=== PATIENT | female | born 1980 | race Caucasian/White ===

== ENCOUNTER 2017-03-10 11:49 | Emergency (ER) | payer MEDICAID ==
[~2017-03-10] VITALS: Ht 162.6 cm; Wt 81.6 kg
[2017-03-10 18:25] LABS: Basophils # (auto) 0.1 uL; Eosinophils # (auto) 0.1 uL; Eosinophils % (auto) 1.1 % (0.0-7.0); Hematocrit 40.2 % (36.0-46.0); Hemoglobin 13.1 g/dL (12.2-16.2); Lymphocytes % (auto) 14.4 % (10.0-50.0); Mean Corpuscular Hgb Conc. 32.7 g/dL (32.0-36.0); Mean Corpuscular Volume 82.6 fL (80.0-100.0); Mean Platelet Volume 7.5 fL (6.9-10.8); Monocytes # (auto) 0.6 uL; Monocytes % (auto) 4.6 % (0.0-12.0); Neutrophils # (auto) 10.8 uL; Neutrophils % (auto) 78.9 % (37.0-80.0); Platelet Count (auto) 298 10^3/uL (140-450); Red Cell Distribution Width 15.6 % (11.8-14.3); White Blood Cell 13.7 10^3/uL (4.4-10.8)
[2017-03-10 18:43] LABS: Albumin 3.8 g/dL (3.4-5.0); BUN/Creatinine Ratio 12.2; Bilirubin, Total 0.3 mg/dL (0.2-1.0); Potassium 3.9 mmol/L (3.5-5.1); Total Protein 8.5 g/dL (6.4-8.2)
[2017-03-10 18:50] LABS: Urine Bilirubin Negative (Negative); Urine Blood Negative /uL (Negative); Urine Color Yellow (Yellow); Urine Glucose Normal (Normal); Urine Hyaline Cast FEW /lpf (0 - 2); Urine Ketone 2+ (Negative); Urine Mucus FEW (None Seen); Urine Nitrite Negative (Negative); Urine RBC 3 /hpf (0 - 4); Urine Squamous Epithelial Cell FEW /hpf (<5); Urine Urobilinogen Normal (Negative)
[2017-03-10] MEDS ORDERED: SODIUM CHLORIDE 0.9% 1,000 ML IV ONE ×2 (21:00→21:15)
[2017-03-10] MEDS ORDERED: NALBUPHINE HCL 10 MG/1ml INJECTION IV ONE (21:15)
[2017-03-10] MEDS ORDERED: ONDANSETRON HCL 4 MG/2 ML VIAL IV ONE (21:15)
[2017-03-10 22:50] VITALS: BP 126/84
== END 2017-03-11 00:28 | disposition home or self-care (01) ==
LOC: ER 11:49
DX: K57.90 Diverticulosis of intestine, part unspecified, without perforation or abscess without bleeding (principal); R19.7 Diarrhea, unspecified
CPT/HCPCS: 36415; 74176; 80053; 81001; 83690; 85025; 96361; 96374; 96375; 99285; J2300; J2405; J7030

== ENCOUNTER 2017-12-06 08:40 | Emergency (ER) | payer MEDICAID ==
[~2017-12-06] VITALS: Ht 162.6 cm; Wt 81.2 kg
[2017-12-06 08:47] VITALS: BP 137/76
== END 2017-12-06 10:29 | disposition home or self-care (01) ==
LOC: ER 08:40
DX: S46.912A Strain of unspecified muscle, fascia and tendon at shoulder and upper arm level, left arm, initial encounter (principal); X50.0XXA Overexertion from strenuous movement or load, initial encounter; Y93.89 Activity, other specified; Y99.8 Other external cause status; Y92.89 Other specified places as the place of occurrence of the external cause

== ENCOUNTER 2018-10-15 14:19 | Emergency (ER) | payer BC, MEDICAID ==
[~2018-10-15] VITALS: Ht 162.6 cm; Wt 83.9 kg
[2018-10-15 15:47] LABS: Urine Bacteria NONE SEEN /hpf (None Seen); Urine Blood Negative /uL (Negative); Urine Specific Gravity 1.012 (1.001-1.035); Urine WBC 3 /hpf (0 - 5)
[2018-10-15] MEDS ORDERED: SODIUM CHLORIDE 0.9% 500 ML IV ONE ×2 (23:25→23:30)
[2018-10-15] MEDS ORDERED: KETOROLAC TROMETH 15 mg/ml 1ML VL IV ONE (23:45)
[2018-10-16] MEDS ORDERED: cefTRIAXone 1GM/50ML D5W 50 ML IV ONE
[2018-10-16 00:56] LABS: Hematocrit 40.7 % (36.0-46.0)
[2018-10-16 00:57] LABS: Hemoglobin 13.6 g/dL (12.2-16.2); Mean Corpuscular Hemoglobin 26.5 pg (28.0-32.0); Mean Corpuscular Hgb Conc. 33.5 g/dL (32.0-36.0); Mean Corpuscular Volume 78.9 fL (80.0-100.0); Red Blood Cells 5.16 10^6/uL (4.0-5.20); Red Cell Distribution Width 17.2 % (11.8-14.3)
[2018-10-16 01:15] LABS: White Blood Cell 9.5 10^3/uL (4.4-10.8)
[2018-10-16 01:16] LABS: Platelet Count (auto) 81 10^3/uL (140-450)
[2018-10-16 02:38] LABS: Albumin 2.9 g/dL (3.4-5.0); Anion Gap 13 (5-15); Blood Urea Nitrogen 9 mg/dL (7-18); Calcium 8.1 mg/dL (8.5-10.1); Carbon Dioxide 21 mmol/L (21-32); Chloride 109 mmol/L (98-107); Glucose 92 mg/dL (74-106); Potassium 3.7 mmol/L (3.5-5.1); Sodium 143 mmol/L (136-145)
[2018-10-16 03:18] LABS: Alanine Aminotransferase 16 U/L (13-56); Alkaline Phosphatase 121 U/L (45-117); Aspartate Aminotransferase 12 U/L (15-37); BUN/Creatinine Ratio 11.5; Bilirubin, Total < 0.1 mg/dL (0.2-1.0); GFR African American 106 mL/min; GFR Non-African American 87 mL/min; Total Protein 7.2 g/dL (6.4-8.2)
[2018-10-16 04:00] VITALS: BP 119/68
== END 2018-10-16 04:52 | disposition home or self-care (01) ==
LOC: ER 14:19
DX: N20.0 Calculus of kidney (principal); N39.0 Urinary tract infection, site not specified; K59.00 Constipation, unspecified; Z98.51 Tubal ligation status
CPT/HCPCS: 36415; 71045; 74176; 80053; 81001; 81025; 85007; 85027; 87086; 94761; 96365; 96375; 99284; J0696; J1885; J7030

== ENCOUNTER 2019-04-15 17:03 | Emergency (ER) | payer BC, MEDICAID ==
[~2019-04-15] VITALS: Ht 162.6 cm; Wt 77.1 kg
[2019-04-15 18:03] VITALS: BP 116/76
[2019-04-15 18:41] LABS: Urine Bacteria NONE SEEN /hpf (None Seen); Urine Blood Negative /uL (Negative); Urine Mucus FEW (None Seen); Urine Specific Gravity 1.015 (1.001-1.035); Urine WBC 14 /hpf (0 - 5)
[2019-04-15] MEDS ORDERED: PHENAZOPYRIDINE HCL 100 MG TAB PO ONE (19:15)
[2019-04-15] MEDS ORDERED: cefTRIAXone SOD 1,000 MG VL IM ONE (19:15)
[2019-04-15] MEDS ORDERED: DexAMETHasone SOD PHOS 10MG/1ML VIAL INJ IM ONE (19:15)
[2019-04-15] MEDS ORDERED: LIDOCAINE 1% HCL (LOCAL ANESTH.) INJ 20ML MDV ONE (19:20)
[2019-04-15] MEDS ORDERED: LIDOCAINE 2%HCL (LOCAL ANESTH.) INJ 10ml MDV IJ ONE (19:30)
== END 2019-04-15 19:55 | disposition home or self-care (01) ==
LOC: ER 17:23
DX: J06.9 Acute upper respiratory infection, unspecified (principal); N39.0 Urinary tract infection, site not specified; Z98.51 Tubal ligation status; Z87.442 Personal history of urinary calculi
CPT/HCPCS: 81001; 96372; 99283; J0696; J1100; J2001

== ENCOUNTER 2019-07-11 18:14 | Emergency (ER) | payer BC, MEDICAID, SELFPAY ==
[~2019-07-11] VITALS: Ht 162.6 cm; Wt 81.6 kg
[2019-07-11] MEDS ORDERED: ALBUTEROL SULF HFA 90MCG INH 200DOSE IN SCH (22:00)
[2019-07-11 22:09] LABS: Basophils # (auto) 0.1 10 ^3/uL (0-0.2); Eosinophils % (auto) 5.1 % (0.0-7.0); Monocytes # (auto) 0.7 10 ^3/uL (0-1.3); Nucleated Red Blood Cells % 0.1 %
[2019-07-11 22:10] LABS: Basophils % (auto) 0.6 % (0.0-2.0); Eosinophils # (auto) 0.6 10 ^3/uL (0-0.8); Hematocrit 36.4 % (36.0-46.0); Hemoglobin 11.9 g/dL (12.2-16.2); Lymphocytes # (auto) 3.4 10 ^3/uL (0.4-5.4); Lymphocytes % (auto) 31.8 % (10.0-50.0); Mean Corpuscular Hgb Conc. 32.7 g/dL (32.0-36.0); Mean Corpuscular Volume 76.5 fL (80.0-100.0); Monocytes % (auto) 6.9 % (0.0-12.0); Neutrophils % (auto) 55.6 % (37.0-80.0); Platelet Count (auto) 314 10^3/uL (140-450); Red Blood Cells 4.76 10^6/uL (4.0-5.20); Red Cell Distribution Width 17.5 % (11.8-14.3); White Blood Cell 10.8 10^3/uL (4.4-10.8)
[2019-07-11 22:26] LABS: Albumin 3.4 g/dL (3.4-5.0)
[2019-07-11 22:29] LABS: BUN/Creatinine Ratio 16.7; Bilirubin, Total 0.2 mg/dL (0.2-1.0); Total Protein 7.7 g/dL (6.4-8.2)
[2019-07-12 02:15] VITALS: BP 147/96
== END 2019-07-12 02:28 | disposition home or self-care (01) ==
LOC: ER 18:15
DX: J01.00 Acute maxillary sinusitis, unspecified (principal); J45.901 Unspecified asthma with (acute) exacerbation; Z20.828 Contact with and (suspected) exposure to other viral communicable diseases; Z87.442 Personal history of urinary calculi; Z98.51 Tubal ligation status
CPT/HCPCS: 36415; 71045; 80053; 82728; 85025; 87070; 87635; 87804; 87880; 99001

== ENCOUNTER 2019-10-25 10:57 | Emergency (ER) | payer BC, MEDICAID ==
[~2019-10-25] VITALS: Ht 162.6 cm; Wt 79.4 kg
[2019-10-25 15:54] VITALS: BP 131/92
== END 2019-10-25 16:50 | disposition home or self-care (01) ==
LOC: ER 10:57
DX: J02.9 Acute pharyngitis, unspecified (principal)

== ENCOUNTER 2019-12-28 19:36 | Emergency (ER) | payer BC, MEDICAID ==
[~2019-12-28] VITALS: Ht 162.6 cm; Wt 79.4 kg
[2019-12-28 20:22] LABS: Urine Bacteria NONE SEEN /hpf (None Seen); Urine Blood Negative /uL (Negative); Urine Specific Gravity 1.001 (1.001-1.035); Urine WBC 1 /hpf (0 - 5)
[2019-12-28 20:58] LABS: Basophils # (auto) 0.1 10 ^3/uL (0-0.2); Hematocrit 36.2 % (36.0-46.0); Monocytes # (auto) 0.8 10 ^3/uL (0-1.3); Nucleated Red Blood Cells % 0.1 %
[2019-12-28 21:00] LABS: Basophils % (auto) 0.6 % (0.0-2.0); Eosinophils # (auto) 0.5 10 ^3/uL (0-0.8); Eosinophils % (auto) 4.5 % (0.0-7.0); Hemoglobin 11.6 g/dL (12.2-16.2); Lymphocytes # (auto) 3.1 10 ^3/uL (0.4-5.4); Mean Corpuscular Hemoglobin 23.6 pg (28.0-32.0); Mean Corpuscular Hgb Conc. 32.1 g/dL (32.0-36.0); Mean Corpuscular Volume 73.5 fL (80.0-100.0); Monocytes % (auto) 7.7 % (0.0-12.0); Neutrophils # (auto) 5.7 10 ^3/uL (1.6-8.6); Neutrophils % (auto) 56.2 % (37.0-80.0); Platelet Count (auto) 322 10^3/uL (140-450); Red Blood Cells 4.93 10^6/uL (4.0-5.20); White Blood Cell 10.1 10^3/uL (4.4-10.8)
[2019-12-28] MEDS ORDERED: KETOROLAC TROMETH 30 MG/ML 1ML VIAL IV ONE (21:00)
[2019-12-28] MEDS ORDERED: SODIUM CHLORIDE 0.9% 1,000 ML IV ONE (21:00)
[2019-12-28] MEDS ORDERED: TAMSULOSIN HYDROCHLORIDE 0.4 MG CAP PO ONE (21:15)
[2019-12-28 21:31] LABS: Bilirubin, Total 0.2 mg/dL (0.2-1.0); Total Protein 7.6 g/dL (6.4-8.2)
[2019-12-28 21:35] LABS: BUN/Creatinine Ratio 13.3; Calcium 8.7 mg/dL (8.5-10.1); Potassium 3.9 mmol/L (3.5-5.1)
[2019-12-28 21:36] LABS: Albumin 3.4 g/dL (3.4-5.0)
[2019-12-28 22:36] VITALS: BP 117/76
== END 2019-12-28 23:15 | disposition home or self-care (01) ==
LOC: ER 19:42
DX: N20.0 Calculus of kidney (principal)
CPT/HCPCS: 36415; 74176; 80053; 81001; 82150; 83690; 85025; 96361; 96374; 99284; J1885; J7030

== ENCOUNTER 2020-01-13 00:01 | Inpatient (IN) | payer BC, MEDICAID ==
[~2020-01-13] VITALS: Ht 162.6 cm; Wt 85.8 kg
[2020-01-13 01:46] LABS: Urine Bacteria NONE SEEN /hpf (None Seen); Urine Blood Negative /uL (Negative); Urine Specific Gravity 1.004 (1.001-1.035); Urine WBC 1 /hpf (0 - 5)
[2020-01-13] MEDS ORDERED: MORPHINE SULFATE 4 MG/ML SYR/VIAL IV ONE (04:15)
[2020-01-13] MEDS ORDERED: ONDANSETRON HCL 4 MG/2 ML VIAL IV ONE (04:15)
[2020-01-13] MEDS ORDERED: SODIUM CHLORIDE 0.9% 1,000 ML IV ONE (04:15)
[2020-01-13] MEDS ORDERED: ONDANSETRON HCL 4 MG/2 ML VIAL IV PRN (05:45)
[2020-01-13] MEDS ORDERED: TEMAZEPAM 15 MG CAP PO PRN (05:45)
[2020-01-13] MEDS ORDERED: ACETAMINOPHEN 325 MG TAB PO PRN (05:45)
[2020-01-13 06:32] LABS: Basophils # (auto) 0.1 10 ^3/uL (0-0.2); Eosinophils # (auto) 0.4 10 ^3/uL (0-0.8); Mean Corpuscular Hemoglobin 23.7 pg (28.0-32.0); Monocytes # (auto) 0.8 10 ^3/uL (0-1.3); Red Blood Cells 4.61 10^6/uL (4.0-5.20)
[2020-01-13 06:33] LABS: Basophils % (auto) 0.6 % (0.0-2.0); Eosinophils % (auto) 3.2 % (0.0-7.0); Hematocrit 34.5 % (36.0-46.0); Hemoglobin 10.9 g/dL (12.2-16.2); Lymphocytes # (auto) 1.8 10 ^3/uL (0.4-5.4); Lymphocytes % (auto) 15.5 % (10.0-50.0); Mean Corpuscular Hgb Conc. 31.7 g/dL (32.0-36.0); Mean Corpuscular Volume 74.9 fL (80.0-100.0); Monocytes % (auto) 7.1 % (0.0-12.0); Neutrophils # (auto) 8.6 10 ^3/uL (1.6-8.6); Neutrophils % (auto) 73.6 % (37.0-80.0); Platelet Count (auto) 335 10^3/uL (140-450); Red Cell Distribution Width 18.6 % (11.8-14.3); White Blood Cell 11.6 10^3/uL (4.4-10.8)
[2020-01-13 06:39] LABS: Albumin 3.5 g/dL (3.4-5.0); BUN/Creatinine Ratio 14.1; Bilirubin, Total 0.2 mg/dL (0.2-1.0); Total Protein 7.4 g/dL (6.4-8.2)
[2020-01-13] MEDS: HYDROcodone-ACET 5/325MG TAB PO PRN (08:50)
--- NOTE | 2020-01-13 08:50 | NUR ---
[facility] admit from ER KHADRA ROSALES admitted to MED SURG unit after SBAR received. Patient oriented to KATE WILLAMS primary RN, unit, [id number] and unit policies regarding patient care and visiting hours. She was weighed by bedscale and encouraged to call if they need something. All questions and concerns addressed, patient verbalized understanding. Patient complaining of left flank pain 6/10, stating the ECONOMIC MANAGER gave her pain medication before bringin her up to the floor.
[2020-01-13] MEDS: FAMOTIDINE 20 MG TAB PO SCH ×2 (09:24→22:43)
[2020-01-13] MEDS ORDERED: ACET1SOL8 PO (09:41)
[2020-01-13 09:43] VITALS: BP 135/72
[2020-01-13] MEDS ORDERED: ACE3T PO (10:26)
[2020-01-13] MEDS ORDERED: TURM1TAB PO (10:26)
[2020-01-13] MEDS ORDERED: APPL188C PO (10:26)
[2020-01-13] MEDS ORDERED: MULT-1018 PO (10:26)
[2020-01-13] MEDS ORDERED: CYAN1TAB11 PO (10:26)
[2020-01-13] MEDS ORDERED: ASCO500T11 PO (10:26)
[2020-01-13 13:00] VITALS: BP 135/70
[2020-01-13] MEDS: MORPHINE SULFATE 4 MG/ML SYR/VIAL IV PRN (13:55)
[2020-01-13] MEDS ORDERED: TAMSULOSIN HYDROCHLORIDE 0.4 MG CAP PO ONE (15:30)
[2020-01-13] MEDS ORDERED: SODIUM CHLORIDE 0.9% 500 ML IV ONE (15:30)
[2020-01-13] MEDS ORDERED: FUROSEMIDE 20 MG/2 ML VIAL IV ONE (15:30)
[2020-01-13] MEDS ORDERED: MANNITOL 20% SOLN 100 gm/500ml 300 ML IV ONE (15:30)
[2020-01-13] MEDS: SODIUM CHLORIDE 0.9% 1,000 ML IV SCH ×2 (15:48→23:51)
[2020-01-13 17:00] VITALS: BP 124/79
--- NOTE | 2020-01-13 19:45 | NUR ---
Opening Shift Note Assumed care of patient, awake and alert. No S/S of distress/SOB or pain. Updated on POC and to be NPO after MN and to continue straining all her urine, patient verbalized understanding. For possible ESWL tomorrow. Instructed to call for assist PRN. Bed in lowest position, call light within reach, will continue to monitor for changes Q1hr and PRN.
[2020-01-13 20:00] VITALS: BP 122/62
[2020-01-13 22:00] VITALS: BP 122/62
[2020-01-14] MEDS: SODIUM CHLORIDE 0.9% 1,000 ML IV SCH ×3 (04:50→15:30)
[2020-01-14 05:00] VITALS: BP 130/65
[2020-01-14 06:50] LABS: INR 0.98 (0.9-1.15); Partial Thromboplastin Time 24.5 sec (23.0-31.2)
[2020-01-14 07:03] LABS: BUN/Creatinine Ratio 13.9; Calcium 8.5 mg/dL (8.5-10.1); Potassium 3.8 mmol/L (3.5-5.1)
--- NOTE | 2020-01-14 07:45 | NUR ---
Dr Squires Spoke with Dr Squires and verifed patient on schedule for surgery this evening. Patient kept NPO as ordered. Consents and check list placed in chart.
[2020-01-14] MEDS: FAMOTIDINE 20 MG TAB PO SCH ×2 (08:47→22:08)
[2020-01-14] MEDS: HYDROcodone-ACET 5/325MG TAB PO PRN (08:48)
[2020-01-14 09:00] VITALS: BP 122/62
[2020-01-14 13:00] VITALS: BP 120/67
--- NOTE | 2020-01-14 14:45 | NUR ---
PRE-OP Patient taken to pre-op via bed accompanied by two staff members. Vital signs stable. IV line patent. CHG bath completed, patient placed in clean gown and linen. Pre-op check list completed.
[2020-01-14] MEDS ORDERED: IOHEXOL 300 MG/ML 100ML BOTTLE IJ ONE (15:56)
[2020-01-14] MEDS ORDERED: CIPROFLOXACIN 400MG/200ML 200 ML IV ONE (16:07)
[2020-01-14] MEDS ORDERED: KETOROLAC TROMETH 30 MG/ML 1ML VIAL IV ONE ×2 (16:15→17:15)
[2020-01-14] MEDS ORDERED: MIDAZOLAM HCL 1MG/1ML-2 ML VIAL ONE (16:17)
[2020-01-14] MEDS ORDERED: MEPERIDINE HCL (25 MG/ML) 1ML VIAL ONE (16:17)
[2020-01-14] MEDS ORDERED: fentaNYL CITRATE 100 MCG/2 ML VL ONE (16:17)
[2020-01-14] MEDS ORDERED: DexAMETHasone SOD PHOS 10MG/1ML VIAL INJ ONE (16:44)
[2020-01-14] MEDS ORDERED: PROPOFOL 10 MG/ML 20 ML IV ONE (16:44)
[2020-01-14] MEDS ORDERED: MIDAZOLAM HCL 1MG/1ML-2 ML VIAL IV PRN (17:15)
[2020-01-14] MEDS ORDERED: ONDANSETRON HCL 4 MG/2 ML VIAL IV PRN (17:15)
[2020-01-14] MEDS ORDERED: LABETALOL HCL 5 MG/ML 4ML SYRINGE IV PRN (17:15)
[2020-01-14] MEDS ORDERED: ePHEDrine SULFATE 50 MG/ML AMP IV PRN (17:15)
[2020-01-14] MEDS ORDERED: MORPHINE SULFATE 4 MG/ML SYR/VIAL IV PRN (17:15)
[2020-01-14] MEDS ORDERED: HYDROmorphone HCL 2 MG/ML VL IV PRN (17:15)
[2020-01-14] MEDS ORDERED: KETOROLAC TROMETH 30 MG/ML 1ML VIAL ONE (17:55)
--- NOTE | 2020-01-14 18:30 | NUR ---
PATIENT REMAINS OFF UNTI Addendum: 01/14/20 at 1831 by Sabiha Ribeiro RN RN *PATIENT REMAINS OFF UNIT
--- NOTE | 2020-01-14 19:45 | NUR ---
Opening Shift Note Assumed care of patient, awake and alert. No S/S of distress/SOB. Complained of tolerable abdominal pain. Funez draining to blood-tinged urine output. Discussed on POC and to call for assist PRN, patient verbalized understanding. Bed in lowest position, call light within reach, will continue to monitor for changes Q1hr and PRN.
[2020-01-14 20:00] VITALS: BP 118/63
[2020-01-14] MEDS: MORPHINE SULFATE 4 MG/ML SYR/VIAL IV PRN (20:22)
[2020-01-14 22:00] VITALS: BP 118/63
[2020-01-15] MEDS: SODIUM CHLORIDE 0.9% 1,000 ML IV SCH ×2 (01:01→12:56)
[2020-01-15] MEDS: MORPHINE SULFATE 4 MG/ML SYR/VIAL IV PRN (01:21)
[2020-01-15 05:00] VITALS: BP 126/75
--- NOTE | 2020-01-15 06:15 | NUR ---
Noted clear of blood urine output coming out from [place]. Removed catheter as ordered
--- NOTE | 2020-01-15 07:00 | NUR ---
Patient able to urinate pink tinged urine with some mary stones. Instructed to continue straining urine
--- NOTE | 2020-01-15 07:30 | NUR ---
Opening Shift Note Assumed care of patient, awake and alert. No S/S of distress/SOB or pain. Instructed on POC and to call for assist PRN, will continue to monitor for changes Q1hr and PRN. Bed is locked and in lowest position. Call light within reach.
[2020-01-15 08:00] VITALS: BP 125/78
[2020-01-15 09:12] VITALS: BP 125/78
[2020-01-15] MEDS: HYDROcodone-ACET 5/325MG TAB PO PRN (09:31)
[2020-01-15] MEDS: FAMOTIDINE 20 MG TAB PO SCH (09:31)
[2020-01-15 13:00] VITALS: BP 116/53
[2020-01-15 17:00] VITALS: BP 117/59
[2020-01-15 17:41] VITALS: BP 135/70
--- NOTE | 2020-01-15 18:30 | NUR ---
DISCHARGE PATIENT GIVEN DISCHARGE PAPERWORK, ALL QUESTIONS AND CONCERNS ANSWERED. PATIENT AMBULATED TO VEHICLE WITH NO SINGS OF DISTRESS OR PAIN. IV removal IV DC'd with clean sterile technique, catheter fully intact. Pressure dressing applied to site. Patient tolerated well.
== END 2020-01-15 18:30 | disposition home or self-care (01) | DRG 465 ==
LOC: ER 00:05 → OVERFLOW 00:06 → WEST WING 08:53
PROVIDERS: ADMIT Nurse Practitioner; ATTEND Hospitalist
PROC: 0TF4XZZ Fragmentation in Left Kidney Pelvis, External Approach (ICD-10-PCS; 2020-01-14)
PROC: 0TF7XZZ Fragmentation in Left Ureter, External Approach (ICD-10-PCS; principal; 2020-01-14 16:18)
DX: N13.2 Hydronephrosis with renal and ureteral calculous obstruction (principal); Z87.442 Personal history of urinary calculi; Z20.828 Contact with and (suspected) exposure to other viral communicable diseases
CPT/HCPCS: 36415; 74018; 74176; 80048; 80053; 81001; 81025; 85025; 85610; 85730; 87426; 96361; 96374; 96375; G0378; J1100; J1885; J2250; J2405; J2704